=== PATIENT | female | born 1985 | race Caucasian/White ===

== ENCOUNTER → 2018-03-14 13:35 | Outpatient (CLI) | payer BC | END | disposition home or self-care (01) | LOC: D.RAD 13:00 | DX: K21.9 Gastro-esophageal reflux disease without esophagitis (principal) ==

== ENCOUNTER 2018-03-22 08:19 | Outpatient (CLI) | payer BC | END 2018-03-22 09:35 | LOC: D.OPS 08:19 | DX: K21.9 Gastro-esophageal reflux disease without esophagitis (principal); Z01.812 Encounter for preprocedural laboratory examination ==